=== PATIENT | male | born 1965 | race Caucasian/White ===

== ENCOUNTER 2016-05-09 11:51 | Emergency (ER) | payer OTHER ==
[~2016-05-09] VITALS: Ht 165.1 cm; Wt 89.6 kg
[2016-05-09 11:55] VITALS: TEMP 36.9; Ht 165.1 cm; Wt 89.6 kg
[2016-05-09] MEDS ORDERED: OXYCODONE HCL IR 5 MG TAB (IMMEDIATE RELEASE) PO STA (12:06)
[2016-05-09] MEDS ORDERED: SIMV40TA2 PO (12:16)
[2016-05-09] MEDS ORDERED: ONDANSETRON 4MG OD TAB PO STA (12:16)
--- NOTE | 2016-05-09 12:45 | DIAGNOSTIC IMAGING REPORT ---
LEFT HAND MIN 3 VIEWS ROUTINE CLINICAL HISTORY: Left hand pain status post trauma COMPARISON: None. DISCUSSION: No fractures or dislocations are visualized. There is prominent dorsal soft tissue swelling. IMPRESSION: Prominent dorsal soft tissue swelling. No fractures are visualized. Electronically signed by: Bienvenido Almanza M.D. 05/09/2016 12:43 PM Dictated Date/Time: 05/09/2016 12:42 PM
--- NOTE | 2016-05-09 12:55 | EMERGENCY ROOM VISIT NOTE ---
ED Visit Note First contact with patient: 12:03 CHIEF COMPLAINT: Left Hand injury HISTORY OF PRESENT ILLNESS: This 50-year-old male presents the ER with chief complaint of left hand injury. The patient states that he got his left hand caught in a dough machine while at work. He now states that his hand is swollen and he can't get his wedding band off. The patient denies any numb since tingling in his fingers. The patient denies any wrist or elbow pain. The patient is right-hand dominant. REVIEW OF SYSTEMS:6 system review was performed and was negative unless stated otherwise in history of present illness. PMH: The patient is healthy; hyperlipidemia SOCIAL HISTORY: Patient lives with his family. The patient denies any tobacco use but admits to occasional alcohol use. PHYSICAL EXAM: Vital Signs: Were reviewed Reviewed Nurse's notes. GEN.: 50-year -old male appears uncomfortable secondary to hand pain. MENTAL STATUS: Alert and oriented 3. LEFT HAND: No gross bony deformity noted. Diffuse edema and ecchymosis noted over the dorsal aspect of the hand. Diffuse superficial abrasions on the dorsal aspect of the hand as well. No deep lacerations noted Swelling to all fingers. Capillary refill is normal. Sensation is intact throughout. The patient is able to move his fingers without difficulty. EMERGENCY DEPARTMENT COURSE: The patient was evaluated. The patient's ring was cut off. The patient was given OxyIR 10 mg by mouth for pain and Zofran 4 mg ODT for associated nausea. X-ray of the left hand was ordered and interpreted by the radiologist and myself. DIAGNOSTICS:LEFT HAND MIN 3 VIEWS ROUTINE CLINICAL HISTORY: Left hand pain status post trauma COMPARISON: None. DISCUSSION: No fractures or dislocations are visualized. There is prominent dorsal soft tissue swelling. IMPRESSION: Prominent dorsal soft tissue swelling. No fractures are visualized. Electronically signed by: Bienvenido Almanza M.D. 05/09/2016 12:43 PM Dictated Date/Time: 05/09/2016 12:42 PM The patient was informed of the findings. The wounds were cleansed and antibiotic ointment and a bandage applied. DIAGNOSIS: Left hand contusion left hand abrasion DISCHARGE INSTRUCTIONS & TREATMENT: Rest the hand and keep it inactive for 2 to 3 days until the pain and swelling subside. Ibuprofen, 600 mg every 6 hours for pain. Take [place] as needed for more severe pain. Do not drive while taking the [place]. Keep the hand elevated when possible. Ice intermittently over the next 24 hours. Antibiotic ointment and a bandage for 2 days. If symptoms persist or worsen, follow-up with your family doctor. Current/Historical Medications Scheduled Simvastatin (Zocor), 40 MG PO QPM Allergies Coded Allergies: No Known Allergies (Unverified , 05/09/16) Vital Signs Date Time Temp Pulse Resp B/P Pulse Ox O2 Delivery O2 Flow Rate FiO2 05/09/16 11:55 36.9 73 18 118/83 96 Room Air Medications Administered Medications (Trade) Dose Ordered Sig/[place] Route Start Time Stop Time Status Last Admin Dose Admin Oxycodone HCl (Roxicodone Immediate Rel Tab) 10 mg NOW STAT PO 05/09/16 12:06 05/09/16 12:07 DC 05/09/16 12:12 10 MG Ondansetron HCl (Zofran Odt) 4 mg NOW STAT PO 05/09/16 12:16 05/09/16 12:17 DC 05/09/16 12:19 4 MG Departure Information Referrals No Doctor, Assigned (PCP) Patient Instructions [facility]
[2016-05-09] MEDS ORDERED: HYDR-5688 PO (12:57)
[2016-05-09 13:07] VITALS: BP 104/74; PULSE 64; O2SAT 96
== END 2016-05-09 13:12 | disposition home or self-care (01) ==
LOC: C.EDB 11:54 → C.EDD 13:12
DX: S60.222A Contusion of left hand, initial encounter (principal); S60.512A Abrasion of left hand, initial encounter; W31.89XA Contact with other specified machinery, initial encounter; Y92.89 Other specified places as the place of occurrence of the external cause; Y99.0 Civilian activity done for income or pay; E78.5 Hyperlipidemia, unspecified; Z79.899 Other long term (current) drug therapy